=== PATIENT | male | born 1985 | race Caucasian/White ===

== ENCOUNTER 2016-12-28 16:43 | Emergency (ER) | payer OTHER ==
[~2016-12-28] VITALS: Ht 157.5 cm; Wt 68.0 kg
[2016-12-28 17:23] LABS: ABSOLUTE NEUTROPHILS 1.4 thou/uL (1.4-8.2); BASOPHILS 0.6 % (0.0-2.0); EOSINOPHILS 1.9 % (0.0-3.0); HEMATOCRIT 43.1 % (42.0-52.0); HEMOGLOBIN 14.6 gm/dL (14.0-18.0); LYMPHOCYTES 53.9 % (24.0-44.0); MANUAL DIFF NO; MONOCYTES 9.7 % (1.0-8.0); PLATELET COUNT 241 thou/uL (150-400); POLYS 33.9 % (36.0-66.0); RBC 4.18 mil/uL (4.50-6.00); RDW 12.7 % (10.5-14.5); WBC 4.2 thou/uL (4.0-11.0)
[2016-12-28 17:32] LABS: CALCIUM 9.6 mg/dL (8.5-10.1); CREATININE 1.1 mg/dL (0.7-1.3); POTASSIUM 4.3 mmol/L (3.5-5.1)
[2016-12-28 17:37] LABS: ALBUMIN 4.2 g/dL (3.4-5.0); DIRECT BILIRUBIN 0.1 mg/dL (<0.1-0.3); TOTAL BILIRUBIN 0.4 mg/dL (<0.1-1.0); TOTAL PROTEIN 8.2 g/dL (6.4-8.2)
[2016-12-28 18:50] LABS: URINE BILIRUBIN NEGATIVE (Negative); URINE BLOOD NEGATIVE (Negative); URINE COLOR YELLOW; URINE GLUCOSE-RANDOM* NEGATIVE (Negative); URINE KETONES NEGATIVE (Negative); URINE NITRITE NEGATIVE (Negative); URINE PROTEIN (DIPSTICK) NEGATIVE (Negative); URINE SPECIFIC GRAVITY 1.015 (1.003-1.035); URINE UROBILINOGEN 0.2 E.U./dl (0.2-1.0)
[2016-12-28] MEDS ORDERED: ZOFRAN ODT4 MG DISSOLVE (19:18)
[2016-12-28 19:25] VITALS: BP 138/85
== END 2016-12-28 19:37 | disposition home or self-care (01) ==
LOC: ER 16:43
PROVIDERS: Emergency Medicine
DX: R11.2 Nausea with vomiting, unspecified (principal); Z88.0 Allergy status to penicillin

== ENCOUNTER 2017-03-27 18:03 | Emergency (ER) | payer OTHER ==
[~2017-03-27] VITALS: Ht 162.6 cm; Wt 68.5 kg
[~2017-03-27 18:03] MED LIST: ZOFRAN ODT4 MG DISSOLVE
[2017-03-27] MEDS ORDERED: LIPITOR10 MG PO (19:02)
[2017-03-27] MEDS ORDERED: ZYRTEC10 M5 PO (19:02)
[2017-03-27] MEDS ORDERED: SYNTHROID50 MCG PO (19:03)
[2017-03-27] MEDS ORDERED: TRICOR145 MG PO (19:03)
[2017-03-27] MEDS ORDERED: DEPAKOTE ER500 MG PO (19:03)
[2017-03-27] MEDS ORDERED: PRILOSEC 20 MG20 MG PO (19:04)
[2017-03-27] MEDS ORDERED: VITAMIN D31000 UNIT PO (19:04)
[2017-03-27] MEDS ORDERED: TRAZODONE HCL50 MG PO (19:04)
[2017-03-27] MEDS ORDERED: TRILEPTAL600 MG PO (19:05)
[2017-03-27] MEDS ORDERED: BENZTROPINE ME0.5 MG PO (19:05)
[2017-03-27] MEDS ORDERED: SEROQUEL 50 MG50 MG PO (19:06)
[2017-03-27 20:03] LABS: ABSOLUTE NEUTROPHILS 1.4 thou/uL (1.4-8.2); BASOPHILS 0.8 % (0.0-2.0); EOSINOPHILS 1.2 % (0.0-3.0); HEMATOCRIT 41.6 % (42.0-52.0); HEMOGLOBIN 14.5 gm/dL (14.0-18.0); LYMPHOCYTES 56.8 % (24.0-44.0); MCH 35.1 pg (26.0-34.0); MCHC 34.9 g/dL (28.0-37.0); MCV 100.5 fL (80.0-100.0); MONOCYTES 11.7 % (1.0-8.0); PLATELET COUNT 236 thou/uL (150-400); POLYS 29.5 % (36.0-66.0); RBC 4.14 mil/uL (4.50-6.00); RDW 12.4 % (10.5-14.5); WBC 4.8 thou/uL (4.0-11.0)
[2017-03-27 20:04] LABS: MANUAL DIFF NO
[2017-03-27 20:09] LABS: CALCIUM 9.4 mg/dL (8.5-10.1); CREATININE 1.1 mg/dL (0.7-1.3); POTASSIUM 3.7 mmol/L (3.5-5.1)
[2017-03-27 20:15] LABS: ALBUMIN 4.2 g/dL (3.4-5.0); TOTAL BILIRUBIN 0.3 mg/dL (<0.1-1.0); TOTAL PROTEIN 8.2 g/dL (6.4-8.2)
[2017-03-27 20:24] LABS: URINE BILIRUBIN NEGATIVE (Negative); URINE BLOOD NEGATIVE (Negative); URINE COLOR YELLOW; URINE GLUCOSE-RANDOM* NEGATIVE (Negative); URINE KETONES NEGATIVE (Negative); URINE LEUKOCYTES-REFLEX NEGATIVE (Negative); URINE PROTEIN (DIPSTICK) NEGATIVE (Negative); URINE UROBILINOGEN 0.2 E.U./dl (0.2-1.0)
[2017-03-27 21:06] VITALS: BP 133/88
== END 2017-03-27 21:16 | disposition home or self-care (01) ==
LOC: ER 18:03
PROVIDERS: Emergency Medicine
DX: R11.2 Nausea with vomiting, unspecified (principal); R10.84 Generalized abdominal pain; E78.5 Hyperlipidemia, unspecified; G40.909 Epilepsy, unspecified, not intractable, without status epilepticus; E03.9 Hypothyroidism, unspecified; F39 Unspecified mood [affective] disorder; Z88.0 Allergy status to penicillin